=== PATIENT | female | born 1960 | race Caucasian/White ===

== ENCOUNTER → 2016-12-21 | Outpatient (CLI) | payer OTHER ==
[~2016-12-21] MED LIST: GADOBUTROL 10 MMOL/10 ML PFS ONE
== END | disposition home or self-care (01) ==
LOC: CFH 13:30
PROVIDERS: ATTEND Orthopaedic Surgery
DX: R22.9 Localized swelling, mass and lump, unspecified (principal); Z98.890 Other specified postprocedural states
CPT/HCPCS: 73223; A9585

== ENCOUNTER → 2018-01-08 | Outpatient (CLI) | payer OTHER | LOC: CFH 08:59 | PROVIDERS: ATTEND Anesthesiology | DX: S32.592A Other specified fracture of left pubis, initial encounter for closed fracture (principal); M51.36 Other intervertebral disc degeneration, lumbar region; M51.37 Other intervertebral disc degeneration, lumbosacral region; X58.XXXA Exposure to other specified factors, initial encounter; Y93.89 Activity, other specified; Y92.89 Other specified places as the place of occurrence of the external cause; Y99.8 Other external cause status; M96.1 Postlaminectomy syndrome, not elsewhere classified | CPT/HCPCS: 72072; 72100; 72148 ==

== ENCOUNTER → 2019-03-12 | Outpatient (CLI) | payer OTHER | END | disposition home or self-care (01) | LOC: RAD 14:18 | PROVIDERS: ATTEND Anesthesiology | DX: M48.02 Spinal stenosis, cervical region (principal); M47.812 Spondylosis without myelopathy or radiculopathy, cervical region; M51.26 Other intervertebral disc displacement, lumbar region; Z98.890 Other specified postprocedural states; M48.07 Spinal stenosis, lumbosacral region; M47.817 Spondylosis without myelopathy or radiculopathy, lumbosacral region | CPT/HCPCS: 72141; 72148 ==

== ENCOUNTER → 2021-04-21 | Outpatient (CLI) | payer OTHER ==
[~2021-04-21] MED LIST changes: +ACET325T14 PO; +ASCO500T8 PO; +ATOR-2 PO; +CHOL500045 PO; +CLON0.1T22 PO; +CYCL10TA2 PO; +DICL20GE TP; +ESTR1TAB15 PO; +FENO160T PO; +FLUO20TA25 PO; -GADOBUTROL 10 MMOL/10 ML PFS ONE; +GLIM4TAB8 PO; +HYDR-3248 PO; +LISI1TAB20 PO; +MAGN250T8 PO; +METF500T17 PO; +OMEP20TA62 PO; +SEMA1PEN3 INJ; +ZINC50CA PO; +budesonide NS; +excedrin PO; +toradol
[2021-04-21 12:01] LABS: ALANINE AMINOTRANSFERASE 34 U/L (12-78); ALBUMIN 3.7 g/dL (3.4-5.0); ANION GAP 4 mmol/L (5-15); CALCIUM 9.8 mg/dL (8.5-10.1); CHLORIDE 109 mmol/L (98-107); CREATININE 1.51 mg/dL (0.55-1.02)
[2021-04-21 12:04] LABS: ALKALINE PHOSPHATASE 62 U/L (45-117); BILIRUBIN,TOTAL 0.3 mg/dL (0.2-1.0)
== END | disposition home or self-care (01) ==
LOC: STAR 11:14
PROVIDERS: ATTEND Emergency Medicine Emergency Medical Services
DX: Z01.818 Encounter for other preprocedural examination (principal); J32.0 Chronic maxillary sinusitis; J32.2 Chronic ethmoidal sinusitis; J34.2 Deviated nasal septum; R00.0 Tachycardia, unspecified; R94.31 Abnormal electrocardiogram [ECG] [EKG]; Z20.822 Contact with and (suspected) exposure to COVID-19
CPT/HCPCS: 36415; 80053; 93005; U0003; U0005

== ENCOUNTER 2021-04-26 08:16 | Day surgery (SDC) | payer OTHER ==
[~2021-04-26] VITALS: Ht 175.3 cm; Wt 76.0 kg
[~2021-04-26 08:16] MED LIST changes: +BACITRACIN OINT 500U/GM, 15 GM ONE; +EPINEPHRINE 1 MG/ML, 1ML ONE; +EPINEPHRINE TOPICAL SOLN 1 MG/ML, 30ML ONE; +FLUORESCEIN SODIUM 500 MG/5 ML ONE; +LIDOCAINE/PF 1%, 30ML ONE
[2021-04-26] MEDS ORDERED: MIDAZOLAM 1 MG/ML, 2ML ONE (08:26)
[2021-04-26] MEDS ORDERED: FENTANYL PF 100 MCG/2ML ONE ×2 (08:27→09:46)
[2021-04-26 08:45] VITALS: BP 139/84
[2021-04-26] MEDS ORDERED: DEXAMETHASONE 4 MG/ML, 1ML ONE (08:59)
[2021-04-26] MEDS ORDERED: CHLORHEXIDINE 15 ML UDC PO ONE (09:00)
[2021-04-26] MEDS ORDERED: LACTATED RINGERS 1,000 ML IV SCH (09:00)
[2021-04-26] MEDS ORDERED: PROMETHAZINE 25 MG/ML, 1ML IVPush PRN (09:30)
[2021-04-26] MEDS ORDERED: OXYcodone 5 MG/5 ML ORAL.SOL UDC PO PRN (09:30)
[2021-04-26] MEDS ORDERED: hydrALAzine 20 MG/ML, 1ML IV PRN (09:30)
[2021-04-26] MEDS ORDERED: METHOCARBAMOL 1,000 MG in DEXTROSE 5% 100 ML IV PRN (09:30)
[2021-04-26] MEDS ORDERED: METOPROLOL 1 MG/ML, 5ML IV PRN (09:30)
[2021-04-26] MEDS ORDERED: ONDANSETRON 2MG/ML, 2ML IVPush PRN (09:30)
[2021-04-26] MEDS ORDERED: LORazepam 2 MG/ML, 1ML IVPush PRN (09:30)
[2021-04-26] MEDS ORDERED: FENTANYL PF 100 MCG/2ML IV PRN (09:30)
[2021-04-26] MEDS ORDERED: PROMETHAZINE 25 MG SUPP PR PRN (09:30)
[2021-04-26] MEDS ORDERED: MEPERIDINE/PF 25MG/0.5ML IVPush PRN (09:30)
[2021-04-26] MEDS ORDERED: HYDROmorphone 1 MG/ML, 1ML INJ IVPush PRN (09:30)
[2021-04-26] MEDS ORDERED: LABETALOL 5MG/ML, 20ML IV PRN (09:30)
[2021-04-26] MEDS ORDERED: ALBUTEROL SULFATE 2.5 MG/3 ML NPPB PRN (09:30)
[2021-04-26] MEDS ORDERED: SUCCINYLCHOLINE 20 MG/ML, 10ML ONE (10:27)
[2021-04-26] MEDS ORDERED: GLYCOPYRROLATE 0.2MG/1ML, 5ML ONE (10:27)
[2021-04-26] MEDS ORDERED: NEOSTIGMINE 1 MG/ML, 10ML ONE (10:27)
[2021-04-26] MEDS ORDERED: ONDANSETRON 2MG/ML, 2ML ONE (10:27)
[2021-04-26] MEDS ORDERED: CEFAZOLIN 1,000 MG ONE (10:27)
[2021-04-26] MEDS ORDERED: ROCURONIUM 10MG/ML,5ML ONE (10:27)
[2021-04-26] MEDS ORDERED: PROPOFOL 10 MG/ML, 20ML ONE (10:27)
[2021-04-26] MEDS ORDERED: OXYcodone 5 MG/5 ML ORAL.SOL UDC ONE (11:13)
== END 2021-04-26 13:55 | disposition home or self-care (01) ==
LOC: OUT 08:16
PROVIDERS: ATTEND Otolaryngology
DX: J32.0 Chronic maxillary sinusitis (principal); J32.2 Chronic ethmoidal sinusitis; J34.2 Deviated nasal septum; E11.9 Type 2 diabetes mellitus without complications; I10 Essential (primary) hypertension; F11.20 Opioid dependence, uncomplicated; Z79.84 Long term (current) use of oral hypoglycemic drugs; Z79.899 Other long term (current) drug therapy; Z88.5 Allergy status to narcotic agent; Z82.49 Family history of ischemic heart disease and other diseases of the circulatory system; Z82.3 Family history of stroke
CPT/HCPCS: 30520; 31253; 31256; 31257; 82962; 88304; J0171; J0690; J1100; J2250; J2405; J2704; J2710; J3010; J7120; J0330

== ENCOUNTER 2021-05-03 09:13 | Day surgery (SDC) | payer OTHER ==
[~2021-05-03] VITALS: Ht 175.3 cm; Wt 76.0 kg
[~2021-05-03 09:13] MED LIST changes: -BACITRACIN OINT 500U/GM, 15 GM ONE; -EPINEPHRINE 1 MG/ML, 1ML ONE; -EPINEPHRINE TOPICAL SOLN 1 MG/ML, 30ML ONE; -FLUORESCEIN SODIUM 500 MG/5 ML ONE; +LIDOCAINE 4%, 4 ML SYR/CANN TP ONE; -LIDOCAINE/PF 1%, 30ML ONE; +OXYMETAZOLINE NASAL SPRAY 0.05%,30ML ONE
[2021-05-03 09:34] VITALS: BP 136/87
== END 2021-05-03 10:50 | disposition home or self-care (01) ==
LOC: OUT 09:13
PROVIDERS: ATTEND Otolaryngology
DX: J32.2 Chronic ethmoidal sinusitis (principal); J32.0 Chronic maxillary sinusitis; J34.2 Deviated nasal septum; Z20.822 Contact with and (suspected) exposure to COVID-19; Z79.899 Other long term (current) drug therapy
CPT/HCPCS: 87635